=== PATIENT | female | born 1995 | race Caucasian/White ===

== ENCOUNTER 2016-11-11 16:04 | Emergency (ER) | payer BC ==
[~2016-11-11 16:04] MED LIST: CEPH500C3 PO; DOXY100T PO; NAPR500 PO; ZOFR4TAB3 SL
[2016-11-11 16:06] VITALS: BP 138/65; PULSE 117; RESP 14; TEMP 98.9; O2SAT 98
--- NOTE | 2016-11-11 18:23 | PD ---
HPI Chief Complaint: Related Problem Time Seen by Provider: 18:20 Travel History International Travel<30 days: No Contact w/Intl Traveler<30days: No Traveled to known affect area: No History of Present Illness HPI 20-year-old female presents to the emergency department for evaluation of vaginal bleeding during . Patient states she took a positive test on Thursday. She states her last cycle was September 28, 2016. Patient states she believes she is approximately 6 weeks . She has not yet been able to follow-up with an toxics program officer. Patient states this is her first . She is a G1, P0. Patient reports abdominal cramping and vaginal bleeding. She denies a risk of STDs reporting one sexual partner for 1 year. Patient denies any shortness of breath or chest pain. No fevers or chills. Patient states the bleeding was heavier this morning and has declined. She states she is not currently wearing a pad because the bleeding is so light. PFSH Past Medical History ?: LMP: 09/28/16 Social History Alcohol Use: No Tobacco Use: No Substance Use: No Allergies-Medications (Allergen,Severity, Reaction): Coded Allergies: Penicillin (Verified Allergy, Severe, Shortness of Breath, 11/11/16) Reported Meds & Prescriptions Reported Meds & Active Scripts Active Clindamycin (Clindamycin HCl) 300 Mg Cap 300 Mg PO BID 7 Days Reported Forte ( Multivit-Min W/Fe-FA) 1 Tab Tab 1 Tab PO DAILY Review of Systems Except as stated in HPI: all other systems reviewed are Neg Physical Exam Narrative GENERAL: Well-developed well-nourished female patient, ambulatory. Afebrile. SKIN: Warm and dry. HEAD: Normocephalic. Atraumatic. EYES: No scleral icterus. No injection or drainage. NECK: Supple, trachea midline. No JVD or lymphadenopathy. CARDIOVASCULAR: Regular rate and rhythm without murmurs, gallops, or rubs. RESPIRATORY: Breath sounds equal bilaterally. No accessory muscle use. Lungs sounds clear to auscultation. GASTROINTESTINAL: Abdomen soft, non-tender, nondistended. Mild tenderness over suprapubic region. MUSCULOSKELETAL: No cyanosis, or edema. BACK: Nontender without obvious deformity. No CVA tenderness. Data Data Last Documented VS Vital Signs Date Time Temp Pulse Resp B/P Pulse Ox O2 Delivery O2 Flow Rate FiO2 11/11/16 23:42 86 18 113/74 98 Room Air 11/11/16 16:06 98.9 Orders Beta Hcg (Quant/Titer) (11/11/16 18:19) Complete Blood Count With Diff (11/11/16 18:19) Comprehensive Metabolic Panel (11/11/16 18:19) Complete Rh (11/11/16 18:19) Urinalysis - C+S If Indicated (11/11/16 18:19) Ed Urine Pregnancytest Poc (11/11/16 18:19) Us Pelvis (Ques Pr/Ect)W Trans (11/11/16 ) Sodium Chlor 0.9% 1000 Ml Inj (Ns 1000 M (11/11/16 23:30) Gc And Chlamydia Pcr (11/11/16 23:56) Wet Prep Profile (11/11/16 23:56) Ceftriaxone Inj (Rocephin Inj) (11/12/16 01:00) Azithromycin Powd Pack (Zithromax Powd P (11/12/16 01:00) Labs Laboratory Tests Test 11/11/16 11/11/16 11/12/16 18:23 18:28 00:49 White Blood Count 8.3 TH/MM3 Red Blood Count 4.50 MIL/MM3 Hemoglobin 13.2 GM/DL Hematocrit 38.7 % Mean Corpuscular Volume 86.0 FL Mean Corpuscular Hemoglobin 29.3 PG Mean Corpuscular Hemoglobin 34.1 % Concent Red Cell Distribution Width 13.6 % Platelet Count 268 TH/MM3 Mean Platelet Volume 8.6 FL Neutrophils (%) (Auto) 66.2 % Lymphocytes (%) (Auto) 25.1 % Monocytes (%) (Auto) 7.7 % Eosinophils (%) (Auto) 0.3 % Basophils (%) (Auto) 0.7 % Neutrophils # (Auto) 5.5 TH/MM3 Lymphocytes # (Auto) 2.1 TH/MM3 Monocytes # (Auto) 0.6 TH/MM3 Eosinophils # (Auto) 0.0 TH/MM3 Basophils # (Auto) 0.1 TH/MM3 CBC Comment DIFF FINAL Differential Comment Sodium Level 139 MEQ/L Potassium Level 3.4 MEQ/L Chloride Level 105 MEQ/L Carbon Dioxide Level 24.4 MEQ/L Anion Gap 10 MEQ/L Blood Urea Nitrogen 6 MG/DL Creatinine 0.52 MG/DL Estimat Glomerular Filtration 152 ML/MIN Rate Random Glucose 78 MG/DL Calcium Level 8.8 MG/DL Total Bilirubin 0.4 MG/DL Aspartate Amino Transf 12 U/L (AST/SGOT) Alanine Aminotransferase 20 U/L (ALT/SGPT) Alkaline Phosphatase 50 U/L Total Protein 7.2 GM/DL Albumin 4.2 GM/DL Human Chorionic Gonadotropin, 8969 MIU/ML Quant Blood Type A POSITIVE Rho(D) Type POSITIVE Urine Color YELLOW Urine Turbidity HAZY Urine pH 8.0 Urine Specific [place] 1.019 Urine Protein TRACE mg/dL Urine Glucose (UA) NEG mg/dL Urine Ketones 80 mg/dL Urine Occult Blood NEG Urine Nitrite NEG Urine Bilirubin NEG Urine Urobilinogen LESS THAN 2.0 MG/DL Urine Leukocyte Esterase NEG Urine RBC 1 /hpf Urine WBC 1 /hpf Urine Squamous Epithelial 7 /hpf Cells Urine Mucus FEW /lpf Microscopic Urinalysis Comment CULT NOT INDICATED Clue Cells (Wet Prep) PRESENT Vaginal Trichomonas (Wet Prep) NONE SEEN Vaginal Yeast (Wet Prep) NONE SEEN Chlamydia trachomatis DNA NOT DETECTED (PCR) Neisseria gonorrhoeae DNA NOT DETECTED (PCR) MDM Medical Decision Making Medical Screen Exam Complete: Yes Emergency Medical Condition: Yes Medical Record Reviewed: Yes Differential Diagnosis Intrauterine versus threatened versus ectopic versus UTI Narrative Course 20-year-old female presents to the emergency department for evaluation of vaginal bleeding or abdominal cramping during . UA, urine test, CBC, CMP, beta hCG, complete Rh, ultrasound are ordered and pending. Workup is initiated in triage. Once a medical bed becomes available, patient will be transferred and care assumed by that provider. Scripts Clindamycin 300 Mg [id number] Mg PO BID 7 Days Ref 0 Prov:Joy Carpio MD 11/12/16 Monica Morrell Nov 11, 2016 18:23
[2016-11-11 19:11] LABS: AUTOMATED NEUTROPHIL # 5.5 TH/MM3 (1.8-7.7); BASOPHIL # 0.1 TH/MM3 (0-0.2); BASOPHIL % 0.7 % (0.0-2.0); EOSINOPHIL % 0.3 % (0.0-4.0); HEMATOCRIT 38.7 % (35.0-46.0); HEMO FLAGS DIFF FINAL; LYMPH % 25.1 % (9.0-44.0); LYMPHOCYTE # 2.1 TH/MM3 (1.0-4.8); MEAN CORPUSCULAR HEMOGLOBIN 29.3 PG (27.0-34.0); MEAN CORPUSCULAR HGB CONC 34.1 % (32.0-36.0); MONO % 7.7 % (0.0-8.0); NEUT % 66.2 % (16.0-70.0); PLATELET COUNT 268 TH/MM3 (150-450); RED CELL DISTRIBUTION WIDTH 13.6 % (11.6-17.2); WHITE BLOOD COUNT 8.3 TH/MM3 (4.0-11.0)
[2016-11-11 19:18] LABS: BLOOD, URINE NEG (NEG); COMMENT (UR) CULT NOT INDICATED; CULTURE IF INDICATED CULT NOT INDICATED; GLUCOSE,URINE NEG (NEG); KETONE, URINE 80 mg/dL (NEG); MUCUS URINE FEW /lpf (OCC); NITRITE,URINE NEG (NEG); SQUAMOUS EPITHELIAL CELL URINE 7 /hpf (0-5); URINE COLOR YELLOW (YELLW/STRAW)
[2016-11-11 19:39] LABS: ANION GAP 10 MEQ/L (5-15); AST (GOT) 12 U/L (16-38); BICARBONATE 24.4 MEQ/L (21.0-32.0); BLOOD UREA NITROGEN 6 MG/DL (7-18); CHLORIDE 105 MEQ/L (98-107); GLOMERULAR FILTRATION RATE 152 ML/MIN (>89); POTASSIUM 3.4 MEQ/L (3.5-5.1); SODIUM (NA) 139 MEQ/L (136-145)
[2016-11-11 19:57] LABS: ALKALINE PHOSPHATASE 50 U/L (45-117); ALT (GPT) 20 U/L (9-42); BETA HCG QUANT 8969 MIU/ML (0-5); TOTAL BILIRUBIN ADULT 0.4 MG/DL (0.2-1.0)
--- NOTE | 2016-11-11 20:21 | RADRPT ---
EXAM DATE/TIME: 11/11/2016 19:03 [facility] COMPARISON: No previous studies available for comparison. EXTERNAL COMPARISON : INDICATIONS : Bleeding. LAB(S): Beta-hC MEDICAL HISTORY : . SURGICAL HISTORY : None. ENCOUNTER: Initial ACUITY: 1 day PAIN SCORE: 5/10 LOCATION: Bilateral pelvis MEASUREMENTS: UTERUS: 7.9 x 4.0 x 5.7 cm ENDOMETRIAL STRIPE: 19 mm RIGHT OVARY: 3.1 x 2.1 x 2.1 cm LEFT OVARY: 3.8 x 3.6 x 2.6 cm FINDINGS: UTERUS: There is a 1.3 x 1.1 x 0.8 cm gestational sac seen. An embryonic pole is not seen. A yolk sac is seen . RIGHT OVARY: Ovary contains no mass or significant cystic lesion. LEFT OVARY: Ovary contains no mass or significant cystic lesion. MISCELLANEOUS: No free fluid. CONCLUSION: Early IUP with a gestational sac with a yolk sac seen. Joel Choudhary MD on November 11, 2016 at 20:17 Board Certified Radiologist. This report was verified electronically.
[2016-11-11] MEDS ORDERED: SODIUM CHLOR 0.9% 1000 ML INJ 1,000 ML IV ONE (23:30)
[2016-11-11] MEDS ORDERED: PRENTAB36 PO (23:39)
[2016-11-11 23:42] VITALS: BP 113/74; PULSE 86; RESP 18; O2SAT 98
--- NOTE | 2016-11-12 00:02 | PD ---
Physical Exam Narrative General: The patient is a well-developed well-nourished female in no acute distress. Cardiovascular: Regular rate and rhythm without murmurs, gallops, or rubs. Lungs: Clear to auscultation bilaterally. No wheezes, rhonchi, or rales. Abdomen: Soft, without tenderness to palpation in all 4 quadrants of the abdomen. No guarding, rebound, or rigidity. Extremities: No clubbing, cyanosis, or edema. Gynecologic exam: The patient was placed in the dorsal lithotomy position. Her external genitalia were examined. She had no evidence of rash or lesions. The speculum was placed into her vagina and the cervix was identified. She had a yellow to brown vaginal discharge noted. No cervical friability. On Bimanual exam: she has no cervical motion tenderness. No adnexal tenderness or prominence noted on palpation. No uterine tenderness on palpation. Data Data Last Documented VS Vital Signs Date Time Temp Pulse Resp B/P Pulse Ox O2 Delivery O2 Flow Rate FiO2 11/11/16 23:42 86 18 113/74 98 Room Air 11/11/16 16:06 98.9 Orders Beta Hcg (Quant/Titer) (11/11/16 18:19) Complete Blood Count With Diff (11/11/16 18:19) Comprehensive Metabolic Panel (11/11/16 18:19) Complete Rh (11/11/16 18:19) Urinalysis - C+S If Indicated (11/11/16 18:19) Ed Urine Pregnancytest Poc (11/11/16 18:19) Us Pelvis (Ques Pr/Ect)W Trans (11/11/16 ) Sodium Chlor 0.9% 1000 Ml Inj (Ns 1000 M (11/11/16 23:30) Gc And Chlamydia Pcr (11/11/16 23:56) Wet Prep Profile (11/11/16 23:56) Ceftriaxone Inj (Rocephin Inj) (11/12/16 01:00) Azithromycin Powd Pack (Zithromax Powd P (11/12/16 01:00) Labs Laboratory Tests Test 11/11/16 11/11/16 11/12/16 18:23 18:28 00:49 White Blood Count 8.3 TH/MM3 Red Blood Count 4.50 MIL/MM3 Hemoglobin 13.2 GM/DL Hematocrit 38.7 % Mean Corpuscular Volume 86.0 FL Mean Corpuscular Hemoglobin 29.3 PG Mean Corpuscular Hemoglobin 34.1 % Concent Red Cell Distribution Width 13.6 % Platelet Count 268 TH/MM3 Mean Platelet Volume 8.6 FL Neutrophils (%) (Auto) 66.2 % Lymphocytes (%) (Auto) 25.1 % Monocytes (%) (Auto) 7.7 % Eosinophils (%) (Auto) 0.3 % Basophils (%) (Auto) 0.7 % Neutrophils # (Auto) 5.5 TH/MM3 Lymphocytes # (Auto) 2.1 TH/MM3 Monocytes # (Auto) 0.6 TH/MM3 Eosinophils # (Auto) 0.0 TH/MM3 Basophils # (Auto) 0.1 TH/MM3 CBC Comment DIFF FINAL Differential Comment Sodium Level 139 MEQ/L Potassium Level 3.4 MEQ/L Chloride Level 105 MEQ/L Carbon Dioxide Level 24.4 MEQ/L Anion Gap 10 MEQ/L Blood Urea Nitrogen 6 MG/DL Creatinine 0.52 MG/DL Estimat Glomerular Filtration 152 ML/MIN Rate Random Glucose 78 MG/DL Calcium Level 8.8 MG/DL Total Bilirubin 0.4 MG/DL Aspartate Amino Transf 12 U/L (AST/SGOT) Alanine Aminotransferase 20 U/L (ALT/SGPT) Alkaline Phosphatase 50 U/L Total Protein 7.2 GM/DL Albumin 4.2 GM/DL Human Chorionic Gonadotropin, 8969 MIU/ML Quant Blood Type A POSITIVE Rho(D) Type POSITIVE Urine Color YELLOW Urine Turbidity HAZY Urine pH 8.0 Urine Specific [place] 1.019 Urine Protein TRACE mg/dL Urine Glucose (UA) NEG mg/dL Urine Ketones 80 mg/dL Urine Occult Blood NEG Urine Nitrite NEG Urine Bilirubin NEG Urine Urobilinogen LESS THAN 2.0 MG/DL Urine Leukocyte Esterase NEG Urine RBC 1 /hpf Urine WBC 1 /hpf Urine Squamous Epithelial 7 /hpf Cells Urine Mucus FEW /lpf Microscopic Urinalysis Comment CULT NOT INDICATED Clue Cells (Wet Prep) PRESENT Vaginal Trichomonas (Wet Prep) NONE SEEN Vaginal Yeast (Wet Prep) NONE SEEN MDM Medical Record Reviewed: Yes Supervised Visit with ALFONSO: No Interpretation(s) Laboratory Tests Test 11/11/16 11/11/16 18:23 18:28 White Blood Count 8.3 TH/MM3 Red Blood Count 4.50 MIL/MM3 Hemoglobin 13.2 GM/DL Hematocrit 38.7 % Mean Corpuscular Volume 86.0 FL Mean Corpuscular Hemoglobin 29.3 PG Mean Corpuscular Hemoglobin 34.1 % Concent Red Cell Distribution Width 13.6 % Platelet Count 268 TH/MM3 Mean Platelet Volume 8.6 FL Neutrophils (%) (Auto) 66.2 % Lymphocytes (%) (Auto) 25.1 % Monocytes (%) (Auto) 7.7 % Eosinophils (%) (Auto) 0.3 % Basophils (%) (Auto) 0.7 % Neutrophils # (Auto) 5.5 TH/MM3 Lymphocytes # (Auto) 2.1 TH/MM3 Monocytes # (Auto) 0.6 TH/MM3 Eosinophils # (Auto) 0.0 TH/MM3 Basophils # (Auto) 0.1 TH/MM3 CBC Comment DIFF FINAL Differential Comment Sodium Level 139 MEQ/L Potassium Level 3.4 MEQ/L Chloride Level 105 MEQ/L Carbon Dioxide Level 24.4 MEQ/L Anion Gap 10 MEQ/L Blood Urea Nitrogen 6 MG/DL Creatinine 0.52 MG/DL Estimat Glomerular Filtration 152 ML/MIN Rate Random Glucose 78 MG/DL Calcium Level 8.8 MG/DL Total Bilirubin 0.4 MG/DL Aspartate Amino Transf 12 U/L (AST/SGOT) Alanine Aminotransferase 20 U/L (ALT/SGPT) Alkaline Phosphatase 50 U/L Total Protein 7.2 GM/DL Albumin 4.2 GM/DL Human Chorionic Gonadotropin, 8969 MIU/ML Quant Blood Type A POSITIVE Rho(D) Type POSITIVE Urine Color YELLOW Urine Turbidity HAZY Urine pH 8.0 Urine Specific [place] 1.019 Urine Protein TRACE mg/dL Urine Glucose (UA) NEG mg/dL Urine Ketones 80 mg/dL Urine Occult Blood NEG Urine Nitrite NEG Urine Bilirubin NEG Urine Urobilinogen LESS THAN 2.0 MG/DL Urine Leukocyte Esterase NEG Urine RBC 1 /hpf Urine WBC 1 /hpf Urine Squamous Epithelial 7 /hpf Cells Urine Mucus FEW /lpf Microscopic Urinalysis Comment CULT NOT INDICATED Last Impressions Pelvis Ultrasound 11/11/16 0000 Signed Impressions: Service Date/Time: Friday, November 11, 2016 19:03 - CONCLUSION: Early IUP with a gestational sac with a yolk sac seen. Joel Choudhary MD Differential Diagnosis Threatened miscarriage, versus ectopic , versus subchorionic hemorrhage , versus cervicitis Narrative Course During the course of the patients emergency department visit, the patients history, examination, and differential diagnosis were reviewed with the patient. The patient had IV access obtained and blood work sent for analysis. The patient was placed on a monitor tech with oximetry and blood pressure monitoring. The patient was prepped for a pelvic examination. The patient's initial history and physical was done by Monica, the nurse practitioner. Please see her complete history and physical. The patient was provided normal saline 1 L IV fluid bolus. The patients laboratory studies were reviewed and remarkable for a CBC that is unremarkable. CMP was remarkable for potassium of 3.4, BUN 6, AST 12, beta hCG 8969, urinalysis is unremarkable except for ketones of 80. The patient's blood type is A+, therefore RhoGAM is not indicated. Radiology studies were reviewed and remarkable for an ultrasound that shows an early IUP with gestational sac with yolk sac seen. The patient will be discharged home to follow-up with her INSTRUCTIONAL CONSULTANT, Dr. Ruffin. She is instructed to follow-up in 2 days for repeat quantitative beta-hCG. Wet prep is positive for clue cells. The patient will be given a prescription for clindamycin at discharge. The patient is resting comfortably and feels better, is alert and in no distress. The patients results and examination findings were discussed with the patient. The repeat examination is unremarkable and benign. The history, exam, diagnostic testing, and current condition do not suggest any significant pathology to warrant further testing, continued ED treatment, admission, or surgical evaluation at this point. The vital signs have been stable. The patient does not have uncontrollable pain, intractable vomiting, or other significant symptoms. The patient's condition is stable and appropriate for discharge. The patient will pursue further outpatient evaluation with a primary care physician or other designated or consulting physician as indicated in the discharge instructions. The patient expressed understanding and was agreeable with this plan. O Diagnosis Primary Impression: Threatened miscarriage in early Referrals: Blanche Ruffin MD 2 days Patient Instructions: General Instructions, Threatened Miscarriage (ED) Departure Forms: Tests/Procedures, Work Release Enter return to work date: Nov 19, 2016 Additional Instruction: The patient is instructed on bed rest and pelvic rest. Scripts Clindamycin 300 Mg [id number] Mg PO BID 7 Days Ref 0 Prov:Joy Carpio MD 11/12/16 Disposition: DISCHARGE HOME Condition: Stable Joy Carpio MD Nov 12, 2016 00:02
[2016-11-12] MEDS ORDERED: AZITHROMYCIN PWD FOR SUSP 1 GM PACKET PO ONE (01:00)
[2016-11-12] MEDS ORDERED: cefTRIAXone INJ 250 MG in SODIUM CHLORIDE 0.9% INJ 25 ML IV ONE (01:00)
[2016-11-12] MEDS ORDERED: CLIN1CAP6 PO (01:13)
[2016-11-12 02:46] LABS: CHLAMYDIA PCR NOT DETECTED (NOT DETECT); NEISSERIA PCR NOT DETECTED (NOT DETECT)
== END 2016-11-12 01:51 | disposition home or self-care (01) ==
LOC: NEPE 16:04
DX: O20.0 Threatened abortion (principal); Z3A.01 Less than 8 weeks gestation of pregnancy
CPT/HCPCS: 76700; 76817; 80053; 81001; 84702; 84703; 85025; 86901; 87210; 87491; 87591; 96361; 96365; 99284; J0696; J7030